=== PATIENT | female | born 1930 | race Caucasian/White ===

== ENCOUNTER 2019-08-27 14:02 | Emergency (ER) | payer MEDICARE, OTHER ==
[~2019-08-27] VITALS: Ht 152.4 cm; Wt 52.2 kg
[2019-08-27 14:46] LABS: BASOPHILS % (AUTO) 0.6 % (0-1); EOSINOPHILS # (AUTO) 0.1 X10'3 (0-0.9); HEMATOCRIT 36.2 % (35.0-45.0); HEMOGLOBIN 12.2 g/dl (12.0-16.0); LYMPHOCYTES # (AUTO) 2.5 X10'3 (1.1-4.8); LYMPHOCYTES % (AUTO) 39.9 % (21-51); MEAN CORPUSCULAR HEMOGLOBIN 28.9 PG (27.0-31.0); MEAN CORPUSCULAR HGB CONC 33.7 g/dL (33.0-36.5); MEAN CORPUSCULAR VOLUME 85.8 FL (78-98); MEAN PLATELET VOLUME 6.1 FL (7.4-10.4); MONOCYTES # (AUTO) 0.7 X10'3 (0-0.9); MONOCYTES % (AUTO) 11.9 % (2-12); NEUTROPHILS # (AUTO) 2.8 X10'3 (1.8-7.7); NEUTROPHILS % (AUTO) 45.6 % (42-75); PLATELET COUNT 285 X10'3 (140-440); RED BLOOD COUNT 4.22 X10'6 (4.20-5.60); RED CELL DISTRIBUTION WIDTH 14.8 % (11.5-14.5); WHITE BLOOD COUNT 6.2 X10'3 (4.5-11.0)
[2019-08-27 14:59] LABS: PARTIAL THROMBOPLASTIN TIME 27 SECONDS (22-32)
[2019-08-27 15:04] LABS: ALANINE AMINOTRANSFERASE 17 U/L (12-78); ALBUMIN 3.5 G/DL (3.4-5.0); ALBUMIN/GLOBULIN RATIO 0.6 (1.1-1.5); ALKALINE PHOSPHATASE 71 IU/L (46-116); ANION GAP 6 (8-16); ASPARTATE AMINO TRANSFERASE 22 U/L (10-37); BILIRUBIN,TOTAL 0.3 MG/DL (0.1-1.0); BLOOD UREA NITROGEN 13 MG/DL (7-18); BUN/CREATININE RATIO 21.7 (6.6-38.0); CALCIUM 9.1 MG/DL (8.5-10.1); CHLORIDE 98 MMOL/L (99-107); SODIUM 134 MMOL/L (135-145); TOTAL PROTEIN 9.6 G/DL (6.4-8.2); eGFR > 90 ML/MIN
[2019-08-27 15:05] LABS: GLUCOSE 77 MG/DL (70-104)
--- NOTE | 2019-08-27 15:37 | NUR ---
PT OFF FLOOR TO CT
[2019-08-27 16:34] VITALS: BP 151/97
== END 2019-08-27 16:36 | disposition home or self-care (01) ==
LOC: ER 14:03
DX: R91.8 Other nonspecific abnormal finding of lung field (principal); J43.9 Emphysema, unspecified; E03.9 Hypothyroidism, unspecified; Z87.891 Personal history of nicotine dependence
CPT/HCPCS: 36415; 71045; 71250; 80053; 84484; 85025; 85610; 85730; 93005; 99284

== ENCOUNTER 2019-10-04 08:14 | Day surgery (SDC) | payer MEDICARE, OTHER ==
[~2019-10-04] VITALS: Ht 160 cm; Wt 50.0 kg
[2019-10-04] MEDS ORDERED: normal saline 1000ml 1,000 ML IV SCH (08:45)
[2019-10-04 09:23] LABS: BASOPHILS % (AUTO) 0.5 % (0-1); EOSINOPHILS # (AUTO) 0.1 X10'3 (0-0.9); EOSINOPHILS % (AUTO) 2.6 % (0-6); HEMATOCRIT 38.2 % (35.0-45.0); HEMOGLOBIN 12.9 g/dl (12.0-16.0); LYMPHOCYTES # (AUTO) 1.7 X10'3 (1.1-4.8); LYMPHOCYTES % (AUTO) 30.8 % (21-51); MEAN CORPUSCULAR HEMOGLOBIN 28.7 PG (27.0-31.0); MEAN CORPUSCULAR HGB CONC 33.7 g/dL (33.0-36.5); MEAN CORPUSCULAR VOLUME 85.2 FL (78-98); MEAN PLATELET VOLUME 6.3 FL (7.4-10.4); MONOCYTES # (AUTO) 0.6 X10'3 (0-0.9); MONOCYTES % (AUTO) 11.6 % (2-12); NEUTROPHILS # (AUTO) 3.1 X10'3 (1.8-7.7); NEUTROPHILS % (AUTO) 54.5 % (42-75); PLATELET COUNT 300 X10'3 (140-440); RED BLOOD COUNT 4.49 X10'6 (4.20-5.60); RED CELL DISTRIBUTION WIDTH 14.9 % (11.5-14.5); WHITE BLOOD COUNT 5.6 X10'3 (4.5-11.0)
[2019-10-04] MEDS ORDERED: LEVO75TA PO (09:30)
[2019-10-04] MEDS ORDERED: GLUC-133 PO (09:30)
[2019-10-04] MEDS ORDERED: ALEN70TA60 PO (09:30)
[2019-10-04] MEDS ORDERED: LISI-600 PO (09:30)
[2019-10-04] MEDS ORDERED: MULT1TAB74 PO (09:30)
[2019-10-04] MEDS ORDERED: FISH1CAP15 PO (09:30)
[2019-10-04] MEDS ORDERED: CITA20TA28 PO (09:30)
[2019-10-04] MEDS ORDERED: SIMV-42 PO (09:30)
[2019-10-04] MEDS ORDERED: [UNRECOGNIZED DRUG - OTHER] PO (09:30)
[2019-10-04] MEDS ORDERED: midazolam 2 mg/2 ml injection ONE (09:35)
[2019-10-04] MEDS ORDERED: LIDOcaine 1%/PF 5ML 10 MG/ML VIAL ONE (09:35)
[2019-10-04] MEDS ORDERED: fentaNYL/PF 50MCG/1 ML 2ML syringe ONE (09:35)
[2019-10-04] MEDS ORDERED: heparin sodium, porcine/PF 100unit/ml 5ML syringe ONE (09:36)
[2019-10-04] MEDS ORDERED: iohexol 300 MG/1 ML 50ml polymer ONE (10:18)
[2019-10-04 10:46] VITALS: BP 144/79
[2019-10-04 11:16] VITALS: BP 148/83
[2019-10-04 11:33] VITALS: BP 106/66
[2019-10-04 11:49] VITALS: BP 141/59
[2019-10-04 12:04] VITALS: BP 133/67
== END 2019-10-04 12:25 | disposition home or self-care (01) ==
LOC: SSTAY O 08:14
PROVIDERS: ATTEND Radiology Diagnostic Radiology
DX: C34.31 Malignant neoplasm of lower lobe, right bronchus or lung (principal); M19.90 Unspecified osteoarthritis, unspecified site; E03.9 Hypothyroidism, unspecified; I10 Essential (primary) hypertension; F32.9 Major depressive disorder, single episode, unspecified; E78.00 Pure hypercholesterolemia, unspecified; Z90.49 Acquired absence of other specified parts of digestive tract; Z98.890 Other specified postprocedural states; Z79.899 Other long term (current) drug therapy; Z87.891 Personal history of nicotine dependence; Z72.89 Other problems related to lifestyle
CPT/HCPCS: 36415; 36561; 76937; 77001; 85025; 99152; 99153; C1769; C1788; C1894; J1642; J2250; J3010; J7030; Q9967

== ENCOUNTER 2019-12-27 08:47 | Outpatient (CLI) | payer MEDICARE, OTHER ==
[~2019-12-27 08:47] MED LIST: ALBU8.5H8 IH; ALEN70TA60 PO; BUDE10.22 INH; CITA20TA28 PO; FISH1CAP15 PO; LEVO75TA PO; LISI-600 PO; MULT1TAB74 PO; PROM25TA14 PO; SIMV-42 PO; SUCR1TAB PO; VALA500T41 PO; [UNRECOGNIZED DRUG - OTHER] PO
[2019-12-27] MEDS ORDERED: iohexol 300mg/ml 100ml inj. ONE (09:05)
== END 2019-12-27 23:59 | disposition home or self-care (01) ==
LOC: 64 CT 08:47
PROVIDERS: ATTEND Internal Medicine
DX: C34.31 Malignant neoplasm of lower lobe, right bronchus or lung (principal); J43.2 Centrilobular emphysema
CPT/HCPCS: 71260; 74177; Q9967